=== PATIENT | male | born 1930 | race African-American/Black ===

== ENCOUNTER 2019-03-25 17:51 | Emergency (ER) | payer MEDICARE ==
[~2019-03-25] VITALS: Ht 180.3 cm; Wt 85.7 kg
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
--- OUTSIDE RECORDS SUMMARY | 2019-03-25 17:59 | XMS REPORT | Summary of Care ---
Author Author [facility] Outpatient Imaging [facility] [place] Address Unknown Phone Unavailable Encounter HQ Encntr_alias(FIN) [id number] Date(s): 06/27/17 - 06/27/17 [facility] Out[facility] [place] [id number] [place] [address], [address] [place] [address]- [phone] Discharge Disposition: Home or Self Care Attending Physician: Vladimir Terrazas DO Vital Signs No data available for this section Problem List No data available for this section Allergies, Adverse Reactions, Alerts No data available for this section Medications No data available for this section Results No data available for this section Immunizations No data available for this section Procedures No data available for this section Social History No data available for this section Assessment and Plan No data available for this section
--- OUTSIDE RECORDS SUMMARY | 2019-03-25 18:00 | XMS REPORT | Summary of Care ---
Author Author [facility] Organization [facility] Address Unknown Phone Unavailable Encounter HQ Encntr_alias(FIN) [id number] Date(s): 09/06/15 - 09/06/15 [facility] [address] [place] [address], [address] [place], [place] [address] [phone] Discharge Disposition: Home Attending Physician: Vladimir Terrazas DO Vital Signs [...]
--- OUTSIDE RECORDS SUMMARY | 2019-03-25 18:00 | XMS REPORT ---
Author Author Stepan Milton Organization [employer] Address Unknown Phone Unavailable Care Team Providers Care Butcher Supervisor Name Role Phone Stepan Miltno CP Unavailable Allergies No Known Allergies Problems Problem Type Condition Code Onset Dates Condition Status Assessment Sciatica, left side M54.32 Active Problem Sciatica, left side M54.32 Active Medications No Known Medications Results No Known Results Summary Purpose [employer] Submission
--- OUTSIDE RECORDS SUMMARY | 2019-03-25 18:00 | XMS REPORT ---
Author Author Stepan Milton Organization [employer] Address Unknown Phone Unavailable Care Team Providers Care Director Of Corporate Marketing Name Role Phone Stepan Milton CP Unavailable Allergies No Known Allergies Problems Problem Type Condition Code Onset Dates Condition Status Assessment Sciatica, left side M54.32 Active Problem Sciatica, left side M54.32 Active Medications No Known Medications Results No Known Results Summary Purpose [employer] Submission
--- OUTSIDE RECORDS SUMMARY | 2019-03-25 18:00 | XMS REPORT ---
Author Author Stepan Milton Organization [employer] Address Unknown Phone Unavailable Care Team Providers Care Textile Machinery Instructor Name Role Phone Stepan Milton CP Unavailable Allergies No Known Allergies Problems Problem Type Condition Code Onset Dates Condition Status Assessment Sciatica, left side M54.32 Active Problem Sciatica, left side M54.32 Active Medications No Known Medications Results No Known Results Summary Purpose [employer] Submission
--- OUTSIDE RECORDS SUMMARY | 2019-03-25 18:00 | XMS REPORT | Summary of Care ---
Author Author [facility] Organization [facility] Address Unknown Phone Unavailable Encounter HQ Shivani(FIN) [id number] Date(s): 04/10/18 - 04/11/18 [facility] [address] [place] [address]- [facility] [phone] Encounter Diagnosis Leg laceration (Discharge Diagnosis) - 04/11/18 Laceration without foreign body, right thigh, initial encounter (Final) - 04/17/18 Contact with other sharp object(s), not elsewhere classified, initial encounter (Final) - Encounter for immunization (Final) - Essential (primary) hypertension (Final) - Personal history of nicotine dependence (Final) - Discharge Disposition: Home or Self Care Attending Physician: Kadi Gong MD Vital Signs Most recent to 1 2 oldest [Reference Range]: Height 180.34 cm (04/10/18 9:34 PM) Temperature Oral 98.1 DegF 97.8 DegF [96.4-99.1 DegF] (04/11/18 12:17 AM) (04/10/18 9:34 PM) Blood Pressure 145/77 mmHg 148/78 mmHg [90-140/60-90 mmHg] *HI* *HI* (04/11/18 12:17 AM) (04/10/18 9:34 PM) Respiratory Rate 17 BRMIN 18 BRMIN [14-20 BRMIN] (04/11/18 12:17 AM) (04/10/18 9:34 PM) Peripheral Pulse 72 bpm 73 bpm Rate [60-100 bpm] (04/11/18 12:17 AM) (04/10/18 9:34 PM) Weight 85 kg (04/10/18 9:34 PM) Body Mass Index 26.14 m2 (04/10/18 9:34 PM) Problem List No data available for this section Allergies, Adverse Reactions, Alerts Substance Reaction Severity Status NKDA Active Medications No data available for this section Results No data available for this section Immunizations Given and Recorded Vaccine Date Status Refusal Reason diphtheria/pertussis, acel/tetanus adult 04/10/18 Given Procedures No data available for this section Social History Social History Type Response Substance Abuse Use: None. Alcohol Never Smoking Status Former smoker; Concerns about tobacco use in household: No; Exposure to Tobacco Smoke None; Cigarette Smoking Last 365 Days No; Reg Smoking Cessation Counseling No entered on: 04/10/18 Assessment and Plan No data available for this section
--- OUTSIDE RECORDS SUMMARY | 2019-03-25 18:00 | XMS REPORT ---
Author Author Stepan Milton Organization [employer] Address Unknown Phone Unavailable Care Team Providers Care Poly Operator Name Role Phone Stepan Milton CP Unavailable Allergies No Known Allergies Problems Problem Type Condition Code Onset Dates Condition Status Assessment Sciatica, left side M54.32 Active Problem Sciatica, left side M54.32 Active Medications No Known Medications Results No Known Results Summary Purpose [employer] Submission
--- OUTSIDE RECORDS SUMMARY | 2019-03-25 18:00 | XMS REPORT | Summary of Care ---
Author Author [facility] Outpatient Imaging [facility] [place] Address Unknown Phone Unavailable Encounter HQ Jaxntr_alijackson(FIN) [id number] Date(s): 09/23/18 - 09/23/18 [facility] [place] [address] [facility], [address] [place] [address]- [phone] Discharge Disposition: Home or Self Care Attending Physician: Debby Montague MD Referring Physician: Debby Montague MD Vital Signs No data available for this [...]
--- OUTSIDE RECORDS SUMMARY | 2019-03-25 18:00 | XMS REPORT ---
Author Author Stepan Milton Organization [employer] Address Unknown Phone Unavailable Care Team Providers Care Filenet Admin Name Role Phone Stepan Milton CP Unavailable Allergies No Known Allergies Problems Problem Type Condition Code Onset Dates Condition Status Assessment Sciatica, left side M54.32 Active Problem Sciatica, left side M54.32 Active Medications No Known Medications Results No Known Results Summary Purpose [employer] Submission
--- NOTE | 2019-03-25 18:18 | NUR ---
MULTIPLE ATTEMPTS DIFFERENT CUFFS, DIFFERENT SITES TO OBTAIN BP. UNSUCCESSFUL. +BILATERAL RADIAL PULSES. WILL RETRY IN ROOM 2. PT DENIES ANY CP, NO SOB. NO N/V/D/F/
[2019-03-25] MEDS ORDERED: CLONIDINE HCL 0.1 MG TAB PO ONE (18:45)
[2019-03-25] MEDS ORDERED: CLONIDINE HCL 0.2 MG TAB PO ONE (19:30)
[2019-03-25 19:41] VITALS: BP 160/76
== END 2019-03-25 19:45 | disposition home or self-care (01) ==
LOC: ER 17:57
DX: I10 Essential (primary) hypertension (principal); E11.9 Type 2 diabetes mellitus without complications
CPT/HCPCS: 99282